=== PATIENT | female | born 1990 ===

== ENCOUNTER 2024-07-18 09:52 | Outpatient (AMB) | payer BC, SELFPAY ==
--- NOTE | 2024-07-18 09:57 | MHC.PC.OV ---
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 Intake Note: Patient is schedule for new patient visit to establish care with a pcp Buffet Waiter/Waitress Required: No Is last menstrual period known: Yes Last menstrual period: 06/23/24 Post menopausal: No Patient : No Allergies Seasonal Allergies Allergy (Intermediate, Verified 07/18/24 10:14) Itchy Eyes Medication List - Last Reconciled 07/18/24 by Jorge A Marx MD cetirizine 10 mg PO DAILY PRN norgestimate-ethinyl estradiol 0.18/0.215/0.25 mg-0.025 mg (Tfb-So-Dvczbw) 1 tab PO DAILY Tobacco use date assessed: 07/18/24 Dental Screening Dental Screen Date: 07/18/24 Did you have a dental visit in the last 12 months?: No Did you have a dental problem in the last 6 months where you did not have access to dental care?: No Was dental information given to patient?: No HPI ROLLER OPERATOR - Annual PE HPI Details New Patient? ?? Prior PCP:? N recent PCP Last office visit/CPE:? > 1 yr Acute issue(s):? Est Care Wants Lipids checked ?? PMHx:? Seasonal Allergies SurgHx:? None FHx:? Mom: HTN. Dad: HTN, Cirrhosis of liver, afib.. Brother: HTN, Congenital single kidney. SocHx: Nonsmoker. EtOH 4-5 drinks a month. No Drugs PFSH Family History (Updated 07/18/24 @ 10:04 by REBECCA Singh) Mother High blood pressure Father High blood pressure Maternal Grandmother Cardiovascular disease Social History (Updated 07/18/24 @ 10:05 by REBECCA Singh) Housing: Apartment Patient Tobacco Use Status: Never used Tobacco e-Cigarette/Vaping Use: Never Used Second Hand Smoke Exposure: No Use of substances other than those prescribed or required for medical reasons: No Patient : No service: No Current occupational status: employed Current occupation: state employee Current occupational exposures/hazards: No Cognitive needs: No Hearing needs: No Vision needs: Yes Female Reproductive History Menstrual Date of last menstrual period: 06/23/24 Questionnaire PHQ-9 Over the last 2 weeks, how often have you been bothered by any of the following problems? 1. Little interest or pleasure in doing things: not at all 2. Feeling down, depressed, or hopeless: not at all 3. Trouble falling or staying asleep, or sleeping too much: several days 4. Feeling tired or having little energy: not at all 5. Poor appetite or overeating: not at all 6. Feeling bad about yourself - or that you are a failure or have let yourself or your family down: not at all 7. Trouble concentrating on things, such as reading the newspaper or watching television: not at all 8. Moving or speaking so slowly that other people could have noticed. Or the opposite - being so fidgety or restless that you have been moving around a lot more than usual: not at all 9. Thoughts that you would be better off or of hurting yourself in some way: not at all Total score: 1 Depression Screening Interpretation: Negative Depression Screening Done: Yes 93968 - PHQ-9 Billing: Yes Source: Developed by Drs. Tim Long, Milagro Arnold, Keven Villafana and colleagues, with an educational toni from [employer] Thrive Questionnaire Date Thrive assessed: 07/18/24 I am a: Patient What is your living situation today?: I choose not to answer this question Within the past 12 months, did the food you bought not last and you didn't have the money to get more?: I choose not to answer this question Within the past 12 months, did you worry whether your food would run out before you got money to buy more?: I choose not to answer this question Do you have trouble paying for medicines?: I choose not to answer this question Do you have trouble getting transportation to medical appointments?: I choose not to answer this question Do you have trouble paying your heating and electricity bill?: I choose not to answer this question Do you have trouble taking care of your child, family member or friend?: No Do you have trouble with day-to-day activities such as bathing, preparing meals, shopping, managing finances, etc.?: No Are you currently unemployed and looking for a job?: I choose not to answer this question Are you interested in more education?: I choose not to answer this question Please select the resources that you would like help with: None Currently or been in a relationship where the following occur: No concerns reported THRIVE Score: 0 AUDIT C Alcohol Use Questionnaire (AUDIT-C) 1. How often do you have a drink containing alcohol?: Never 3. How often do you have six or more drinks on one occasion?: Never Total Score: 0 Score Reviewed/Action Taken: Yes ROSEANN-7 AMB Questionnaire ROSEANN-7 Date ROSEANN - 7 assessed: 07/18/24 Feeling nervous, anxious, or on edge: 0 = Not at all Not being able to stop or control worryin = Not at all Worrying too much about different things: 0 = Not at all Trouble relaxin = Not at all Being so restless that it is hard to sit still: 0 = Not at all Becoming easily annoyed or irritable: 0 = Not at all Feeling afraid as if something awful might happen: 0 = Not at all Total ROSEANN-7 score (0-4 normal; 5-9 mild; 10-14 moderate; 15-21 severe): 0 Source: Developed by Drs. Tim Long, Milagro Arnold, Keven Villafana and colleagues, with an educational toni from [employer] ROSEANN-7 Assessment Billing ROSEANN-7 Assessment Tool: ROSEANN-7 Assessment 57081 Review of Systems Const Denies chills, Denies fatigue, Denies fever(s), Denies headache(s) and Denies weakness ENT Denies dizziness and Denies headache(s) Card Denies chest pain, Denies lightheadedness, Denies dyspnea and Denies other (Palpitations) Resp Denies cough, Denies dyspnea, Denies wheezing and Denies other ( shortness of breath) Musc Denies numbness and Denies tingling Neuro Denies dizziness, Denies headache(s), Denies numbness, Denies tingling, Denies paresthesias and Denies weakness Psych Denies anxiety and Denies depression Endo Denies fatigue Aller/Immun Denies wheezing Physical exam (Primary Care) Vital Signs: Last Vital Signs Temp 99.1 F 07/18/24 10:07 Pulse 80 07/18/24 10:07 Resp 14 07/18/24 10:07 BP 126/60 07/18/24 10:07 Pulse Ox 99 07/18/24 10:07 Oxygen Delivery Method Room Air 07/18/24 10:07 BMI result Body Mass Index 24.4 Tobacco/Smoking Status: Tobacco use Status Tobacco use date assessed 07/18/24 07/18/24 10:05 Patient Tobacco Use Status Never used Tobacco 07/18/24 10:05 e-Cigarette/Vaping Use Never Used 07/18/24 10:05 PHQ-9: PHQ-9 Score PHQ-9: Total score 1 07/18/24 10:27 Depression Screening Interpretation: Negative Thrive Assessment: Date of Thrive Assessment Date Thrive assessed 07/18/24 07/18/24 10:05 Currently or been in a relationship where the following occur: No concerns reported Const General: no acute distress and well developed Nutritional Appearance: well nourished Orientation/consciousness: patient oriented x3 HENMT Head: Yes normocephalic and Yes atraumatic Eyes General: appearance normal, both eyes and all related structures Pupils: Equal, round and reactive pupils present EOM: EOMs intact bilaterally Resp Effort & Inspection: normal respiratory effort Auscultation: clear to auscultation bilaterally Cardio Rate: regular rate Rhythm: regular rhythm Heart sounds: S1 normal heart sound present, S2 normal heart sound present, no gallops, no murmurs and no rubs Neuro General: patient oriented x3 and gait normal Cranial nerves: Yes Equal, round and reactive pupils present Psych Affect: normal affect Coding Level of Care Code New Pt Level 3 (63568) New Pt Prev Care 18-39yr(88918 Diagnoses Adult general medical exam Z00.00 Seasonal allergies J30.2 Additional Codes ROSEANN-7 Assessment Billing - ROSEANN-7 Assessment Tool: ROSEANN-7 Assessment 06020 ([id number]) PHQ-9 - 99377 - PHQ-9 Billing: Yes ([id number]) Assessment & Plan Assessment & Plan (1) Adult general medical exam: Code(s): Z00.00 - Encounter for general adult medical examination without abnormal findings Category: Medical Plan: 34-year-old?female?presents?as?new?patient?for?complete?physical?exam Exam?within?normal?limits Encouraged?healthy?diet?with?active?lifestyle?and?plenty?of?exercise (2) Seasonal allergies: Code(s): J30.2 - Other seasonal allergic rhinitis Category: Medical Plan: Continue?cetirizine Will?send?a?prescription Plan Will?check?labs?in?follow-up?by?telemedicine Orders: Orders Lipid Panel Today Z00.00 - Encounter for general adult medical examination without abnormal findings Microalbumin, Random (w Creat) Today I10 - Essential (primary) hypertension CT NG by PCR Today Z11.3 - Encounter for screening for infections with a predominantly sexual mode of transmission UA CC w/rflx Micro + Cult Today Z00.00 - Encounter for general adult medical examination without abnormal findings HIV Ab/Ag Today Z11.3 - Encounter for screening for infections with a predominantly sexual mode of transmission Comprehensive [place]. Panel Fast Today Z00.00 - Encounter for general adult medical examination without abnormal findings LDL Cholesterol Direct Today E78.5 - Hyperlipidemia, unspecified TSH reflex Free T4 Today Z00.00 - Encounter for general adult medical examination without abnormal findings Hepatitis B,C Profile Today Z11.3 - Encounter for screening for infections with a predominantly sexual mode of transmission Syphilis Screen Today Z11.3 - Encounter for screening for infections with a predominantly sexual mode of transmission Medications: New cetirizine 10 mg PO DAILY 90 days 90 tabs 3RF
[2024-07-18 10:07] VITALS: BP 126/60; PULSE 80; RESP 14; TEMP 37.3; O2SAT 99; BMI 24.4
--- OUTSIDE RECORDS SUMMARY | 2024-07-18 10:14 | XMS_ITS | Encounter Summary ---
Author Organization [facility] Address [address] [place] [address] Care Team Providers Care Front Desk Coordinator Name Role Phone Cher Tello MD Primary Care Provider [phone] Encounter Details Date Type Department Care Team (Late st Contact Info) Description 12/16/2015 Orders Only [facility] STORAGE CENTER MANAGER [address] [place] [address] [phone] Thelma Mooney NP Social History Tobacco Use Types Packs/Day Years Used Date Smoking Tobacco: Never Smokeless Tobacco: Never Alcohol Use Standard Drinks/Week Comments No 0 (1 standard drink = 0.6 oz pur e alcohol) Comments No Sex and Gender Information Value Date Recorded Sex Assigned at Not on file Legal Sex Female 8:43 PM EST Gender Identity Not on file Sexual Orientation Not on file documented as of this encounter Progress Notes * Andie Stevens RN - 12/17/2015 8:36 AM EDTQuick Note: To CERTIFIED PESTICIDE APPLICATOR for review, normal letter sent. documented in this encounter Plan of Treatment Not on file documented as of this encounter Procedures * Due to [place] [employer] law, this organization might not be sharing negative HIV tests. Procedure Name Priority Date/Time Associated Diagnosis Comments CHLAMYDIA TRACHOMATIS/N. GONORRHOEAE (GC) RNA, TMA (APTIMA GENITAL SWAB) Routine 12/16/2015 2:53 PM EDT Screen for STD (sexually transmitted disease) Encounter for gynecological examination without abnormal finding documented in this encounter Results * Due to [place] [employer] law, this organization might not be sharing negative HIV tests. * CHLAMYDIA TRACHOMATIS/N. GONORRHOEAE (GC) RNA, TMA (APTIMA GENITAL SWAB) (12/16/2015 2:53 PM EDT) Chlamydia trachomatis rRNA NOT DETECTED NOT DETECTED [facility] Comment:{CHLAMYDIA TRACHOMAT IS RNA, TMA {[id number]) Neisseria Gonorrhoeae rRNA NOT DETECTED NOT DETECTED [facility] Comment:{NEISSERIA GONORRHOE AE RNA, TMA {[id number]) COMMENT SEE NOTE [facility] Comment: {COMMENT {[id number]) This test was performed using the APTIMA COMBO2 Assay ([employer] The analytical performance characteristics of this assay, when used to test SurePath specimens have been determined by [employer]. 12/16/2015 2:53 PM EDT 12/16/2015 7:11 PM EDT Narrative Resulting Agency Comment [id number] [facility] CERTIFIED PESTICIDE APPLICATOR LABORATORY Final Result [facility] [address] [place] [address] documented in this encounter Visit Diagnoses Diagnosis Screen for STD (sexually transmitted disease) Screening examination for venereal disease Encounter for gynecological examination without abnormal finding Routine gynecological examination documented in this encounter Care Teams Front Desk Coordinator Relationship Specialty Start Date End Date Cher Tello MD [address] [place] [id number] PCP - General 03/13/14 documented as of this encounter
--- OUTSIDE RECORDS SUMMARY | 2024-07-18 10:14 | XMS_ITS | Clinical Summary ---
Author Organization [facility] Address [address] [id number] Care Team Providers Care Quill Picking Machine Operator Name Role Phone Cher Tello MD Primary Care Provider [phone] Allergies Active Allergy Reactions Criticality Noted Date Comments Environmental 12/27/2006 POLLEN Medications No known medications Active Problems Problem Noted Date Diagnosed Date Family planning, BCP ( control pills) maint enance 12/16/2015 Family History Medical History Relation Name Comments Hypertension Father Diabetes Maternal grandmother Hypertension Mother Relation Name Status Comments Father Maternal grandmother Mother Social History Tobacco Use Types Packs/Day Years Used Date Smoking Tobacco: Never Smokeless Tobacco: Never Alcohol Use Standard Drinks/Week Comments No 0 (1 standard drink = 0.6 oz pur e alcohol) Comments No Sex and Gender Information Value Date Recorded Sex Assigned at Not on file Legal Sex Female 8:43 PM EST Gender Identity Not on file Sexual Orientation Not on file Last Filed Vital Signs Vital Sign Reading Time Taken Comments Blood Pressure 120/80 12/16/2015 10:30 AM EDT Pulse - - Temperature - - Respiratory Rate - - Oxygen Saturation - - Inhaled Oxygen Concentration - - Weight 80.3 kg (177 lb) 12/16/2015 10:30 AM EDT Height 172.7 cm (5' 8 ) 12/16/2015 10:30 AM EDT Body Mass Index 26.91 12/16/2015 10:30 AM EDT Plan of Treatment Health Maintenance Due Date Last Done Comments Hepatitis C Screening 1992 DTaP/Tdap/Td (1 - Tdap) 2010 Hep B (1 of 3 - 19+ 3-dose series) 05/27/2011 Pap Smear 05/21/2017 05/21/2014, 05/21/2014 COVID-19 Vaccine (2023-2 5 season) 2023 Influenza (#1) 2023 Zoster (Shingrix) (1 of 2) 2042 HPV Vaccine Aged Out No longer eligi ble based on patient's age to complete this topic Hep A Aged Out No longer eligi ble based on patient's age to complete this topic Hib Aged Out No longer eligi ble based on patient's age to complete this topic Meningococcal ACWY Aged Out No longer eligible based on patient's age to complete this topic Pneumococcal Aged Out No longer eligi ble based on patient's age to complete this topic Procedures * Due to [place] [employer] law, this organization might not be sharing negative HIV tests. Procedure Name Priority Date/Time Associated Diagnosis Comments PAP SMEAR 05/21/2014 from Last 3 Months or Most Recently Relevant to Health Maintenance Results * Due to [place] [employer] law, this organization might not be sharing negative HIV tests. * PAP SMEAR (05/21/2014) Narrative Transcriptions Unknown Pcp, Non Rmg - 12/22/2015 12:00 AM EDT Non Rm Unknown Pcp PATHOLOGY Final Result from Last 3 Months or Most Recently Relevant to Health Maintenance Insurance [employer] FEE FOR SERVICE PPO Care Teams Quill Picking Machine Operator Relationship Specialty Start Date End Date Cher Tello MD [address] [place] [address] PCP - General 03/13/14
--- OUTSIDE RECORDS SUMMARY | 2024-07-18 10:15 | XMS_ITS ---
Author Name [facility] Organization Unknown Care Team Organization Name Specialty Phone Email Start Date End [facility] Master Esthetician ([facility] 02/08/2024
== END 2024-07-18 10:47 | disposition home or self-care (01) ==
LOC: HO.HMCFM 09:52
PROVIDERS: PCP Family Medicine; Visit Provider Family Medicine
DX: Z00.00 Encounter for general adult medical examination without abnormal findings (principal); J30.2 Other seasonal allergic rhinitis

== ENCOUNTER → 2024-07-18 09:52 | Outpatient (BNVA) | payer BC, SELFPAY | PROVIDERS: PCP Family Medicine; Visit Provider Family Medicine | DX: Z00.00 Encounter for general adult medical examination without abnormal findings (principal); J30.2 Other seasonal allergic rhinitis | CPT/HCPCS: 96127 ==

== ENCOUNTER 2024-07-18 11:13 | Outpatient (REF) | payer BC, SELFPAY ==
--- OUTSIDE RECORDS SUMMARY | 2024-07-18 12:05 | XMS_ITS | Clinical Summary ---
Author Organization [facility] Address [address] [id number] Care Team Providers Care Group Home Counselor Name Role Phone Cher Tello MD Primary Care Provider [phone] Allergies Active Allergy Reactions Criticality Noted Date [...] complete this topic Procedures * Due to [place] [employer] law, this organization might not be sharing negative HIV tests. Procedure Name Priority Date/Time Associated Diagnosis Comments PAP SMEAR 05/21/2014 from Last 3 Months or Most Recently Relevant to Health Maintenance Results * Due to [place] [employer] law, this organization might not be sharing negative HIV tests. * PAP SMEAR (05/21/2014) Narrative Transcriptions Unknown Pcp, Non Rmg - 12/22/2015 12:00 AM EDT Non Rm Unknown Pcp PATHOLOGY Final Result from Last 3 Months or Most Recently Relevant to Health Maintenance Insurance [employer] FEE FOR SERVICE PPO Care Teams Group Home Counselor Relationship Specialty Start Date End Date Cher Tello MD [address] [place] [address] PCP - General 03/13/14
--- OUTSIDE RECORDS SUMMARY | 2024-07-18 12:05 | XMS_ITS | Encounter Summary ---
Author Organization [facility] Address [address] [place] [address] Care Team Providers Care Clerical Receptionist Name Role Phone Cher Tello MD Primary Care Provider [phone] Encounter Details Date Type Department Care Team (Late st Contact Info) Description 12/16/2015 Orders Only [facility] BEAM HOUSE INSPECTOR [address] [place] [address] [phone] Thelma Mooney NP Social History Tobacco Use [...] - 12/17/2015 8:36 AM EDTQuick Note: To CITRIX ADMINISTRATOR for review, normal letter sent. documented in this encounter Plan of Treatment Not on file documented as of this encounter Procedures * Due to [place] [employer] law, this organization might not be sharing negative HIV tests. Procedure Name Priority Date/Time Associated Diagnosis Comments CHLAMYDIA TRACHOMATIS/N. GONORRHOEAE (GC) RNA, TMA (APTIMA GENITAL SWAB) Routine 12/16/2015 2:53 PM EDT Screen for STD (sexually transmitted disease) Encounter for gynecological examination without abnormal finding documented in this encounter Results * Due to [place] [employer] law, this organization might not be sharing negative HIV tests. * CHLAMYDIA TRACHOMATIS/N. GONORRHOEAE (GC) RNA, TMA (APTIMA GENITAL SWAB) (12/16/2015 2:53 PM EDT) Chlamydia trachomatis rRNA NOT DETECTED NOT DETECTED [facility] Comment:{CHLAMYDIA TRACHOMAT IS RNA, TMA {[id number]) Neisseria Gonorrhoeae rRNA NOT DETECTED NOT DETECTED [facility] Comment:{NEISSERIA GONORRHOE AE RNA, TMA {[id number]) COMMENT SEE NOTE [facility] Comment: {COMMENT {[id number]) This test was performed using the APTIMA COMBO2 Assay ([employer] The analytical performance characteristics of this assay, when used to test SurePath specimens have been determined by [employer]. 12/16/2015 2:53 PM EDT 12/16/2015 7:11 PM EDT Narrative Resulting Agency Comment [id number] [facility] CITRIX ADMINISTRATOR LABORATORY Final Result [facility] [address] [place] [address] documented in this encounter Visit Diagnoses Diagnosis Screen for STD (sexually transmitted disease) Screening examination for venereal disease Encounter for gynecological examination without abnormal finding Routine gynecological examination documented in this encounter Care Teams Clerical Receptionist Relationship Specialty Start Date End Date Cher Tello MD [address] [place] [id number] PCP - General 03/13/14 documented as of this encounter
[2024-07-18 14:08] LABS: Appearance Urine Clear; Color Urine Yellow; Glucose Urine UA Negative (Negative); Leukocyte Esterase Urine Negative (Negative); Nitrite Urine Negative (Negative); PH 5.5 (5.0-9.0); Urine Blood Negative (Negative); Urine Ketones Negative (Negative); Urine Protein Negative (Neg-Trace)
[2024-07-18 14:31] LABS: Alanine Aminotransferase 18 U/L (0-31); Albumin Level 4.5 g/dL (3.5-5.0); Alkaline Phosphatase 36 U/L (39-117); Anion Gap 7 (12-20); Aspartate Amino Transferase 20 U/L (5-31); Bilirubin Total 0.7 mg/dL (0.0-1.0); Blood Urea Nitrogen 15 mg/dL (9-16); Calcium 9.9 mg/dL (8.4-10.2); Carbon Dioxide 29 mmol/L (22-29); Chloride 106 mmol/L (96-108); Cholesterol 192 mg/dL (<200); Estimated Glomerular Filt Rate > 60; Glucose Fasting 88 mg/dL (60-99); HDL Cholesterol 66 mg/dL (>40); LDL Cholesterol Calculated 110 mg/dL (<100); Potassium 4.3 mmol/L (3.3-5.1); Sodium 138 mmol/L (135-145); Total Protein 7.4 g/dL (6.5-8.0); Triglycerides 84 mg/dL (<150)
[2024-07-18 14:38] LABS: Creatinine Urine 136.38 mg/dL; Microalbum/Creatinine Ratio Ur 5.8 ug/mg cr (<30)
[2024-07-18 14:41] LABS: Syphilis Screen Nonreactive (Nonreactive)
[2024-07-18 14:44] LABS: HBS Num1 0.37 mIU/mL (0-7.99); HBc Num1 0.07 S/CO (0.00-0.79); HBsAGNum1 0.31 S/CO (0.00-0.99); HIV AB/AG Nonreactive (Nonreactive); HIV Num 1 0.06 S/CO (0.00-0.99); Hepatitis B Core Antibody Nonreactive (Nonreactive); Hepatitis B Surface Antigen Negative (Negative); ~HepC Num1 0.09 S/CO (0.00-0.79); ~Hepatitis B Surface Antibody NONREACTIVE (Nonreactive); ~Hepatitis C Antibody Nonreactive (Nonreactive)
[2024-07-18 14:52] LABS: TSH reflex Free T4 0.54 uIU/mL (0.32-4.0)
[2024-07-19 16:44] LABS: LDL Cholesterol Direct 106 mg/dL (<100)
== END 2024-07-18 11:14 | disposition home or self-care (01) ==
LOC: HO.WFDLDS 11:13
PROVIDERS: Visit Provider Family Medicine
DX: Z00.00 Encounter for general adult medical examination without abnormal findings (principal); I10 Essential (primary) hypertension; E78.5 Hyperlipidemia, unspecified; Z11.3 Encounter for screening for infections with a predominantly sexual mode of transmission
CPT/HCPCS: 36415; 80053; 80061; 81003; 82043; 82570; 83721; 84443; 86704; 86706; 86780; 86803; 87340; 87389

== ENCOUNTER 2024-08-08 13:11 | Outpatient (AMB) | payer BC, SELFPAY ==
--- NOTE | 2024-08-08 13:08 | MHC.PC.OV ---
Intake Visit Reasons: f/u CPE-labs via telemed Allergies Seasonal Allergies Allergy (Intermediate, Verified 08/08/24 13:09) Itchy Eyes Tobacco use date assessed: 07/18/24 Dental Screening Dental Screen Date: 07/18/24 HPI f/u CPE-labs via telemed HPI Details 34 y/o female presents to f/u CPE-labs via telemedicine. Labs drawn 07/18/24. Reviewed labs with pt. Triglycerides 84. TC 192. LDL direct 106. HDL 66. She notes she is up to date with her pap smears. Denies any FHx of breast cancer. [facility] Family History (Updated 07/18/24 @ 10:04 by REBECCA iSngh) Mother High blood pressure Father High blood pressure Maternal Grandmother Cardiovascular disease Social History (Updated 07/18/24 @ 10:05 by REBECCA Singh) Housing: Apartment Patient Tobacco Use Status: Never used Tobacco e-Cigarette/Vaping Use: Never Used Second Hand Smoke Exposure: No service: No Current occupational status: employed Current occupation: state employee Current occupational exposures/hazards: No Cognitive needs: No Hearing needs: No Vision needs: Yes Questionnaire Thrive Questionnaire Date Thrive assessed: 07/18/24 ROSEANN-7 AMB Questionnaire ROSEANN-7 Date ROSEANN - 7 assessed: 07/18/24 Source: Developed by Drs. Tim Long, Milagro Arnold, Keven Villafana and colleagues, with an educational toni from [employer]. Review of Systems Const Denies chills, Denies fatigue, Denies fever(s), Denies headache(s) and Denies weakness ENT Denies dizziness and Denies headache(s) Card Denies dyspnea Resp Denies cough, Denies dyspnea, Denies wheezing and Denies other (shortness of breath) Musc Denies numbness and Denies tingling Neuro Denies dizziness, Denies headache(s), Denies numbness, Denies tingling and Denies weakness Psych Denies anxiety and Denies depression Endo Denies fatigue Aller/Immun Denies wheezing Physical exam (Primary Care) Tobacco/Smoking Status: Tobacco use Status Tobacco use date assessed 07/18/24 08/08/24 13:11 Patient Tobacco Use Status Never used Tobacco 08/08/24 13:11 e-Cigarette/Vaping Use Never Used 08/08/24 13:11 Thrive Assessment: Date of Thrive Assessment Date Thrive assessed 07/18/24 08/08/24 13:11 Telehealth Telehealth Telehealth Platform: Telephone Location of provider rendering services: practice address Location of patient: address on file Patient Identification confirmed using: Name, : Yes Telehealth method: voice only Patient verbally consented to treatment: Yes Patient verbally consented to billing insurance company: Yes Patient informed of any privacy concerns related to visit: Yes Minutes spent on Phone/Video with Pt.: 5 Coding Level of Care Code Tele Est Pt Level 2 (27488) Diagnoses Elevated LDL cholesterol level E78.00 Screening for STD (sexually transmitted disease) Z11.3 Screening for cervical cancer Z12.4 Assessment & Plan Assessment & Plan (1) Elevated LDL cholesterol level: Code(s): E78.00 - Pure hypercholesterolemia, unspecified Category: Medical Plan: Mildly?elevated?LDL?cholesterol HDL?ratios?are?good Encouraged?a?diet?lower?in?saturated?fats?and?cholesterol (2) Screening for STD (sexually transmitted disease): Code(s): Z11.3 - Encounter for screening for infections with a predominantly sexual mode of transmission Category: Medical Plan: Screening?was?negative Asymptomatic (3) Screening for cervical cancer: Code(s): Z12.4 - Encounter for screening for malignant neoplasm of cervix Category: Medical Plan: Patient?had?cervical?cancer?screening?with?her?braille and talking books clerk?in?the?last?few?months Up-to-date Orders: Orders Comprehensive [place]. Panel Fast Today Z00.00 - Encounter for general adult medical examination without abnormal findings Complete Blood Count Auto Diff Today Z00.00 - Encounter for general adult medical examination without abnormal findings TSH reflex Free T4 Today Z00.00 - Encounter for general adult medical examination without abnormal findings Lipid Panel Today E78.00 - Pure hypercholesterolemia, unspecified, Z00.00 - Encounter for general adult medical examination without abnormal findings Microalbumin, Random (w Creat) Today I10 - Essential (primary) hypertension UA CC w/rflx Micro + Cult Today Z00.00 - Encounter for general adult medical examination without abnormal findings
--- OUTSIDE RECORDS SUMMARY | 2024-08-08 13:13 | XMS_ITS | Clinical Summary ---
Author Organization [facility] Address [address] [place], [place] [id number] Care Team Providers Care Reel Cart Operator Name Role Phone Cher Tello MD Primary Care Provider [phone] Allergies Active Allergy Reactions Criticality Noted Date [...] complete this topic Procedures * Due to [place] [employer] law, this organization might not be sharing negative HIV tests. Procedure Name Priority Date/Time Associated Diagnosis Comments PAP SMEAR 05/21/2014 from Last 3 Months or Most Recently Relevant to Health Maintenance Results * Due to [place] [employer] law, this organization might not be sharing negative HIV tests. * PAP SMEAR (05/21/2014) Narrative Transcriptions Unknown Pcp, Non Rmg - 12/22/2015 12:00 AM EDT Non Rm Unknown Pcp PATHOLOGY Final Result from Last 3 Months or Most Recently Relevant to Health Maintenance Insurance [employer] FEE FOR SERVICE PPO Care Teams Reel Cart Operator Relationship Specialty Start Date End Date Cher Tello MD [address] [place] [address] PCP - General 03/13/14
--- OUTSIDE RECORDS SUMMARY | 2024-08-08 13:13 | XMS_ITS | Encounter Summary ---
Author Organization [facility] Address [address] [place] [address] Care Team Providers Care Drum Barker Operator Name Role Phone Cher Tello MD Primary Care Provider [phone] Encounter Details Date Type Department Care Team (Late st Contact Info) Description 12/16/2015 Orders Only [facility] [employer] [address] [place] [address] [phone] Thelma Mooney NP Social History Tobacco Use [...] - 12/17/2015 8:36 AM EDTQuick Note: To [employer] for review, normal letter sent. documented in this encounter Plan of Treatment Not on file documented as of this encounter Procedures * Due to [place] [facility] law, this organization might not be sharing negative HIV tests. Procedure Name Priority Date/Time Associated Diagnosis Comments CHLAMYDIA TRACHOMATIS/N. GONORRHOEAE (GC) RNA, TMA (APTIMA GENITAL SWAB) Routine 12/16/2015 2:53 PM EDT Screen for STD (sexually transmitted disease) Encounter for gynecological examination without abnormal finding documented in this encounter Results * Due to [place] [facility] law, this organization might not be sharing negative HIV tests. * CHLAMYDIA TRACHOMATIS/N. GONORRHOEAE (GC) RNA, TMA (APTIMA GENITAL SWAB) (12/16/2015 2:53 PM EDT) Chlamydia trachomatis rRNA NOT DETECTED NOT DETECTED [facility] Comment:{CHLAMYDIA TRACHOMAT IS RNA, TMA {[id number]) Neisseria Gonorrhoeae rRNA NOT DETECTED NOT DETECTED [facility] Comment:{NEISSERIA GONORRHOE AE RNA, TMA {[id number]) COMMENT SEE NOTE [facility] Comment: {COMMENT {[id number]) This test was performed using the APTIMA COMBO2 Assay ([employer] The analytical performance characteristics of this assay, when used to test SurePath specimens have been determined by [employer]. 12/16/2015 2:53 PM EDT 12/16/2015 7:11 PM EDT Narrative Resulting Agency Comment [id number] [facility] Final Result [facility] [address] [place] [address] documented in this encounter Visit Diagnoses Diagnosis Screen for STD (sexually transmitted disease) Screening examination for venereal disease Encounter for gynecological examination without abnormal finding Routine gynecological examination documented in this encounter Care Teams Drum Barker Operator Relationship Specialty Start Date End Date Cher Tello MD [address] [place] [id number] PCP - General 03/13/14 documented as of this encounter
== END 2024-08-08 17:05 ==
LOC: HO.HMCFM 13:11
PROVIDERS: PCP Family Medicine; Visit Provider Family Medicine
DX: E78.00 Pure hypercholesterolemia, unspecified (principal); Z11.3 Encounter for screening for infections with a predominantly sexual mode of transmission

== ENCOUNTER → 2024-08-08 13:11 | Outpatient (BNVA) | payer BC, SELFPAY | PROVIDERS: PCP Family Medicine; Visit Provider Family Medicine | DX: Z13.89 Encounter for screening for other disorder (principal) ==